=== PATIENT | female | born 1970 | race Caucasian/White ===

== ENCOUNTER 2016-09-25 18:30 | Emergency (ER) | payer MEDICAID ==
[~2016-09-25] VITALS: Ht 162.6 cm; Wt 67.2 kg
[2016-09-25 18:36] VITALS: Ht 162.6 cm; Wt 67.2 kg
[2016-09-25] MEDS ORDERED: HYDROCODONE/APAP (5/325) TAB PO ONE (19:00)
[2016-09-25] MEDS ORDERED: IBUPROFEN 600 MG TAB PO ONE (19:00)
--- NOTE | 2016-09-25 19:21 | RADRPT ---
PROCEDURE: Left ankle series CLINICAL INDICATION: Left ankle pain. Trauma TECHNIQUE: AP, oblique, and lateral views of the left ankle were obtained. COMPARISON: None FINDINGS: Comminuted nondisplaced fractures of the distal tibia and fibula are seen. Suggestion of a nondispl aced fracture of the medial malleolus is also noted. Soft tissue swelling at the fracture sites is seen. No other fracture is seen. No dislocation is seen. The osseous structures are well minerali zed. The ankle mortise is intact. The articular surfaces are normal. No evidence of a joint effus ion is seen. The remaining soft tissue structures are intact. IMPRESSION: Comminuted nondisplaced fractures of the distal tibia and fibula as well as suggestion of a nondispl aced fracture of the medial malleolus. RPTAT: HPNM Physician Arvind Date Time Electronically viewed and signed by Physician Arvind on 09/25/2016 19:20 /
[2016-09-25] MEDS ORDERED: IBUP-1542 PO (19:30)
[2016-09-25] MEDS ORDERED: HYDR-906 PO (19:30)
--- NOTE | 2016-09-25 19:34 | ERD ---
ER Documentation Chief Complaint Date/Time DATE: 09/25/16 TIME: 19:32 Chief Complaint left ankle pain s/p mechanical fall today HPI This 46-year-old female had a mechanical fall today and complains of left ankle pain and swelling. She has restricted range of motion due to pain but no weakness. She has no bleeding or lacerations. She denies knee or hip pain. ROS All systems reviewed and are negative except as per history of present illness. Medications Home Meds Active Scripts Hydrocodone/Acetaminophen ([place] 5-325 Tablet) 1 Each Tablet, 1 TAB PO Q6H Y for PAIN, #14 TAB Prov:YVON MILLER MD 09/25/16 Ibuprofen* (Motrin*) 600 Mg Tab, 600 MG PO Q6, #20 TAB Prov:YVON MILLER MD 09/25/16 Allergies Allergies: Coded Allergies: No Known Drug Allergies (Verified Allergy, Unknown, 09/25/16) PMhx/Soc Medical and Surgical Hx: pt denies Medical Hx, pt denies Surgical Hx Hx Alcohol Use: No Hx Substance Use: No Hx Tobacco Use: No Smoking Status: Never smoker Physical Exam Vitals Vital Signs Date Time Temp Pulse Resp B/P Pulse Ox O2 Delivery O2 Flow Rate FiO2 09/25/16 18:36 98.1 73 17 131/62 99 Physical Exam Const: [] Alert, [id number], uncomfortable due to pain. Head: Atraumatic Eyes: Normal Conjunctiva ENT: Normal External Ears, Nose and Mouth. Neck: Full range of motion..~ No meningismus. Resp: Clear to auscultation bilaterally Cardio: Regular rate and rhythm, no murmurs Abd: Soft, non tender, non distended. Normal bowel sounds Skin: No petechiae or rashes Back: No midline or flank tenderness Ext: No cyanosis, or edema. Generalized tenderness and swelling around the left distal fibula and tibia area. No appreciable tendon or neurologic deficit is no bleeding, warmth or lacerations. There is no evidence of ischemia. Neur: Awake and alert Psych: Normal Mood and Affect Results 24 hrs Current Medications Medications (Trade) Dose Ordered Sig/Edinson Route PRN Reason Start Time Stop Time Status Last Admin Dose Admin Acetaminophen/ Hydrocodone Bitart ([place] (5/325)) 1 tab ONCE ONCE PO 09/25/16 19:00 09/25/16 19:01 DC 09/25/16 19:09 Ibuprofen (Motrin) 600 mg ONCE ONCE PO 09/25/16 19:00 09/25/16 19:01 DC 09/25/16 19:09 Procedures/[facility] [place] X-ray left ankle 3V Interpreted by me: Bones: There are nondisplaced fractures of the distal fibula, distal tibia including the medial malleolus. Mortise is intact. Joints: No dislocation. Nondisplaced fractures of the distal fibula and tibia Patient was placed in a left short leg splint. Splint Assessment: Neurovascularly intact post splint placement with good fit. Patient was also given crutches with crutch training, [place] and ibuprofen for pain. Patient was discharged home instructions for orthopedic follow-up within the next week. She was referred to the orthopedist director of marketing communications but advised he may need authorization from her primary care doctor and referral. She should return for fevers, redness, new symptoms. Departure Diagnosis: Primary Impression: Ankle fracture, left Encounter type: initial encounter Fracture type: closed Qualified Code: S82.892A - Ankle fracture, left, closed, initial encounter Condition: Stable Patient Instructions: Treating Ankle Fractures Referrals: [facility] () Usted se worley hecho un examen mdico de control que le indica que no est en shakir condicin que requiera MAS tratamiento en el Departamento de Emergencia. Un estudio ms profundo y el tratamiento de fields condicin pueden esperar sin ningn riesgo hasta que usted sea atendida/o en el consultorio de fields mdico o shakir cl stacia. Es responsabilidad suya arreglar shakir edward para el seguimiento del sonia. MANEJO DE CONDICIONES NO URGENTES EN EL FUTURO 1) Si usted tiene un mdico de atencin primaria: Usted debera llamar a fields mdico de atencin primaria antes de venir al departamento de emergencia. Despus de las horas de consultorio, fields doctor o fields asociado/a est disponible por telfono. El mdico o enfermero de makenna en el servicio telefnico puede asesorarle por nikia medio para atender el problema, o sonia contrario se puede programar shakir edward. 2) Si usted no tiene un mdico de atencin primaria: Llame al mdico o clnica de referencia que aparece abajo lam las horas de consultorio para hacer shakir edward para que le vean. CLINICAS: [place] [id number] [phone] [facility] 999 [phone] [facility] [phone] [place] [address] [phone] [place] [id number] [phone] [facility]. [phone] [address] Additional Instructions: KATYA FRACTURA. VA AL DOCTOR PRIMARIO/ ORTHOPEDICO ESTRA SEMANA. Va al fields doctor / specialista para mas evaluacon en el proximo semana. posiblemente necesita autorizado de fields doctor primario para specialista. Regresa para fiebre, o mas o nueva simptomas. YVON MILLER MD Sep 25, 2016 19:34
== END 2016-09-25 20:24 | disposition home or self-care (01) ==
LOC: FTE 18:30
DX: S82.892A Other fracture of left lower leg, initial encounter for closed fracture (principal); W18.39XA Other fall on same level, initial encounter; Y92.9 Unspecified place or not applicable
CPT/HCPCS: 29515; 73610; Z7610